=== PATIENT | male | born 1950 ===

== ENCOUNTER 2020-04-09 11:25 | Day surgery (SDC) | payer OTHER ==
[~2020-04-09 11:25] MED LIST: CRESTOR20 MG PO; METFORMIN HCL500 M3 PO; SYNTHROID50 MCG PO; TOPROL XL25 M1 PO
[2020-04-09] MEDS ORDERED: MIRALAX17 GM PO (17:25)
[2020-04-09] MEDS ORDERED: ULTRAM50 MG PO (17:25)
[2020-04-09] MEDS ORDERED: TYLENOL ARTHRI650 MG PO (17:25)
== END 2020-04-09 20:40 | disposition home or self-care (01) ==
LOC: CIR.AMB 11:25
PROVIDERS: ATTEND Surgery
DX: K43.6 Other and unspecified ventral hernia with obstruction, without gangrene (principal); Z20.828 Contact with and (suspected) exposure to other viral communicable diseases